=== PATIENT | male | born 1965 | race African-American/Black ===

== ENCOUNTER 2022-07-12 12:15 | Emergency (ER) | payer MEDICAID, OTHER ==
[~2022-07-12] VITALS: Ht 182.9 cm; Wt 104.0 kg
[2022-07-12] MEDS: FUROSEMIDE 40MG/4ML VIAL IVP SCH ×2 (13:54→17:54)
[2022-07-12 14:01] LABS: EOSINOPHILS % 2.5 % (0.0-5.0); HEMATOCRIT. 42.5 % (42.0-52.0); HEMOGLOBIN. 14.2 g/dL (14.0-18.0); LYMPHOCYTES % 21.6 % (20.0-50.0); MEAN CORPUSCULAR HEMOGLOBIN 29.6 pg (28.0-32.0); MEAN CORPUSCULAR VOLUME 88.7 fL (80.0-94.0); MEAN PLATELET VOLUME 10.2 fl (7.4-10.4); MONOCYTES % 14.3 % (2.0-8.0); NEUTROPHILS % 59.6 % (40.0-76.0); PLATELET 122 x1000/uL (130-400); RED BLOOD CELL COUNT 4.79 mill/uL (4.7-6.1); RED CELL DISTRIBUTION WIDTH 17.8 % (11.6-14.6)
[2022-07-12 14:05] LABS: CHLORIDE 107 mEq/L (98-107)
[2022-07-12 14:15] LABS: HDL CHOLESTEROL 38 mg/dL (40-59); LDL CHOLESTEROL 69 mg/dL (5-100)
[2022-07-12] MEDS ORDERED: METOLAZONE 10MG TABLET PO NR (14:30)
[2022-07-12 17:58] VITALS: BP 134/86
[2022-07-12] MEDS ORDERED: CARVEDILOL 3.125 MG TABLET PO SCH (21:00)
[2022-07-13] MEDS ORDERED: DOCUSATE SODIUM SUGAR FREE 100MG/10ML UDC NG SCH (09:00)
== END 2022-07-12 19:48 | disposition short-term general hospital (02) ==
LOC: ER 12:15 → CANBEDREQ 17:43 → ER 19:48
DX: I11.0 Hypertensive heart disease with heart failure (principal); I50.9 Heart failure, unspecified; R60.1 Generalized edema; I25.10 Atherosclerotic heart disease of native coronary artery without angina pectoris; Z87.891 Personal history of nicotine dependence
CPT/HCPCS: 36415; 71045; 76705; 80053; 80061; 84484; 85025; 87426; 93005; 93970; 96374; 99285; C9803; J1940